=== PATIENT | male | born 1955 | race Caucasian/White ===

== ENCOUNTER 2021-02-06 11:50 | Emergency (ER) | payer OTHER ==
[~2021-02-06 11:50] MED LIST: FLEXERIL5 MG PO
[2021-02-06 12:21] LABS: BASOPHIL 0.7 % (0-2); EOSINOPHIL 4.1 % (0-7); HCT 48.8 % (42.0-52.0); HGB 15.5 g/dl (13.2-18.0); LYMPHOCYTE 28.9 % (15-48); MCH 28.6 pg (25.0-31.0); MCHC 31.8 g/dL (32.0-36.0); MONOCYTE 7.4 % (0-12); MPV 9.7 fL (6.0-9.5); NEUTROPHIL 57.7 % (41-80); NRBC 0; PLT 300 K/uL (150-400); RBC 5.42 M/uL (4.70-6.00); RDW 13.8 % (11.5-14.0); WBC 9.6 K/uL (4.0-10.5)
[2021-02-06 12:25] LABS: INR 1.03 (0.9-1.2); PROTHROMBIN TIME 12.9 SECONDS (11.8-13.4)
[2021-02-06 12:26] LABS: D-DIMER 0.32 ug/mLFEU (0.00-0.41)
[2021-02-06 12:43] LABS: BILIRUBIN - TOTAL 0.7 mg/dL (0.2-1.0); BUN/CREAT RATIO (CALC) 17.6 RATIO; CREATININE 0.85 mg/dL (0.67-1.17); GLOBULIN (CALCULATION) 3.4 g/dL; POTASSIUM 4.2 mmol/L (3.5-5.1); TOTAL PROTEIN 7.4 g/dL (6.4-8.2)
== END 2021-02-06 20:01 | disposition other institution (70) ==
LOC: FER 11:50
PROVIDERS: Emergency Medicine
DX: I25.110 Atherosclerotic heart disease of native coronary artery with unstable angina pectoris (principal); E11.9 Type 2 diabetes mellitus without complications; I10 Essential (primary) hypertension; Z20.822 Contact with and (suspected) exposure to COVID-19
CPT/HCPCS: 36415; 71045; 80053; 83690; 83735; 84145; 84484; 85025; 85379; 85610; 93005; 96372; J1650; J2270; J2405; J7030; U0002